=== PATIENT | female | born 1985 | race Hispanic/Latino ===

== ENCOUNTER 2022-06-05 15:21 | Outpatient (CLI) | payer BC ==
[~2022-06-05 15:21] MED LIST: Iopamidol 370 76% 100 ML VIAL ONE
== END 2022-06-05 15:22 | disposition home or self-care (01) ==
LOC: BICCT 15:21
PROVIDERS: ATTEND Nurse Practitioner Family
DX: R10.2 Pelvic and perineal pain (principal); Z97.5 Presence of (intrauterine) contraceptive device
CPT/HCPCS: 72194; Q9967

== ENCOUNTER 2023-08-20 15:18 | Outpatient (CLI) | payer BC | END 2023-08-20 15:19 | disposition home or self-care (01) | LOC: BICRAD 15:18 | PROVIDERS: ATTEND Nurse Practitioner Family | DX: R10.30 Lower abdominal pain, unspecified (principal) | CPT/HCPCS: 74019 ==